=== PATIENT | female | born 1965 | race Caucasian/White ===

== ENCOUNTER → 2023-12-10 | Emergency (ER) | payer OTHER ==
[~2023-12-10] MED LIST: KETOROLAC 30 MG/ML INJ ONE; LIDOCAINE HCL JELLY 2% 6 ML SYRINGE TOP ONE
--- NOTE | 2023-12-10 15:59 | RAD REPORT ---
EXAM DESCRIPTION: CT - Head C Spine Mpr Wo Con - 12/10/2023 3:13 pm CLINICAL HISTORY: Head and neck injury status post fall. Head and neck pain COMPARISON: None. TECHNIQUE: Computed axial tomography of the head and cervical spine was obtained. Sagittal and coronal reconstruction was performed. All CT scans are performed using dose optimization technique as appropriate and may include automated exposure control or mA/KV adjustment according to patient size. FINDINGS: Right posterior scalp hematoma An intracranial bleed is not seen. The ventricles are normal in caliber. No significant hypodensity within the brain. An extra-axial fluid collection is not noted. Fluid within the visualized sinuses and mastoids is not seen A cervical fracture is not visualized. No dislocation is noted. Widening of spinous processes between C1-C2 Scoliosis involves the spine. 1.5 centimeter nodule right lobe thyroid gland IMPRESSION: No acute intracranial abnormality is seen. A cervical fracture is not visualized. Widening of the spinous processes between C1-C2 probably not significant. However if the patient has clinical symptoms to suggest ligamentous injury MRI would be recommended 1.5 centimeter nodule right lobe thyroid gland. Nonemergent thyroid ultrasound recommended
--- NOTE | 2023-12-10 16:42 | ER ---
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 Unable to visualize wound in triage, dried blood noted to scalp/hair. Coronavirus screen: At this time, the client does not indicate any symptoms associated with coronavirus-19. Ebola Screen: No symptoms or risks identified at this time. Initial Sepsis Screen: Does the patient meet any 2 criteria? No. Patient's initial sepsis screen is negative. Does the patient have a suspected source of infection? No. Patient's initial sepsis screen is negative. Risk Assessment: Do you want to hurt yourself or someone else? Patient reports no desire to harm self or others. Onset of symptoms was December 10, 2023. 15:01 Method Of Arrival: Wheelchair hb 15:01 Acuity: MAXWELL 4 hb 16:29 Care prior to arrival: None. Mechanism of Injury: Fall tripped and fell, hitting right me1 posterior scalp on the corner of the wall. Trauma event details: Injury occurred: December 10, 2023. Triage Assessment: 15:09 General: Appears in no apparent distress. Behavior is calm, cooperative. Pain: Pain hb currently is 5 out of 10 on a pain scale. Neuro: Level of Consciousness is awake, alert, obeys commands, Oriented to person, place, time, situation. Cardiovascular: Patient's skin is warm and dry. Respiratory: Respiratory effort is even, unlabored, Respiratory pattern is regular, symmetrical. Injury Description: Laceration sustained to scalp is not bleeding, unable to visualize at this time due to hair/dried blood. Trauma Activation: Physician: ED Physician; Name: ; Notified At: ; Arrived At: Physician: General Surgeon; Name: ; Notified At: ; Arrived At: Physician: Radiology; Name: ; Notified At: ; Arrived At: Physician: Respiratory; Name: ; Notified At: ; Arrived At: Physician: Lab; Name: ; Notified At: ; Arrived At: 16:29 n/a me1 Historical: - Allergies: 15:03 Sulfa (Sulfonamide Antibiotics); hb 15:03 Codeine; hb 15:03 Cipro; hb - Home Meds: 15:06 Gastric Bypass [Active]; Vitamin B [Active]; semaglutide subcutaneous [Active]; hb Adderall 20 mg three times a day [Active]; Prozac 60 mg Oral daily [Active]; Zyrtec 10 mg Oral tablet [Active]; - PMHx: 15:09 Depressive disorder; hb - PSHx: 15:06 Wrist - Right; Ankle - Bilateral; Breast Reduction; section; hb - Immunization history:: Adult Immunizations up to date, Client reports receiving the 2nd dose of the Covid vaccine. - Social history:: Smoking status: Patient denies any tobacco usage or history of. - Immunization history: Last tetanus immunization: - up to date. Screenin:23 [facility] ED Fall Risk Assessment (Adult) History of falling in the last 3 months, me1 including since admission Yes- single mechanical fall (1 pt) Confusion or Disorientation No (0 pts) Intoxicated or Sedated No (0 pts) Impaired Gait No (0 pts) Mobility Assist Device Used No (0 pt) Altered Elimination No (0 pt) Score/Fall Risk Level 0 - 2 = Low Risk Maintained a safe environment, Provided non-skid footwear, Hourly rounding (assess needs \T\ fall precautionary measures) done. Abuse screen: Denies threats or abuse. Nutritional screening: No deficits noted. Tuberculosis screening: No symptoms or risk factors identified. Primary Survey: 16:27 NO uncontrolled hemorrhage observed. A: The client is awake and alert. The airway is me1 patent. The client is alert. Airway: patent, Patient intubated prior to arrival No supplemental oxygen in use on arrival. Oral cavity: clear, gag reflex present, Trachea midline. Breathing/Chest: Spontaneous respiratory effort, equal unlabored respirations, breath sounds clear bilaterally, regular pattern, symmetrical chest rise and fall. Circulation: Hemorrhage: No external hemorrhage noted. Skin color: pink, Skin temperature: warm, dry, Heart tones present. Disability Pupils are equal, round, reactive to light and accommodation. Exposure/Environment: There is no evidence of uncontrolled external bleeding. Obvious injury(ies) are noted at this time: laceration to right posterior scalp. 16:29 Reassessment Breathing: Spontaneous respiratory effort, equal unlabored respirations, me1 breath sounds clear bilaterally, regular pattern with symmetrical chest rise and fall. Respiratory effort Spontaneous Unlabored Breath sounds Clear Respiratory pattern Regular Chest inspection Symmetrical Circulation: No external hemorrhage noted. Regular and strong central pulse, skin warm/dry/normal color. Heart tones Present Disability: Pupils Pupils are equal, round, reactive to light and accomodation. Alert. 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 Laceration noted. Pain: Complains of pain in scalp Pain does not radiate. Pain currently is 5 out of 10 on a pain scale. Quality of pain is described as aching, Pain began suddenly, Is continuous. Neuro: Level of Consciousness is awake, alert, obeys commands, Oriented to person, place, time, situation, Appropriate for age. Cardiovascular: Capillary refill < 3 seconds Patient's skin is warm and dry. Respiratory: Airway is patent Trachea midline Respiratory effort is even, unlabored, Respiratory pattern is regular, symmetrical. GI: No deficits noted. : No deficits noted. EENT: No deficits noted. Derm: Wound noted scalp Wound is laceration to right posterior scalp. Musculoskeletal: No signs and/or symptoms reported regarding the musculoskeletal system. Injury Description: tripped and fell hitting head on the corner of a wall. Vital Signs: 15:01 BP 147 / 96; Pulse 68; Resp 16; Temp 98.4; Pulse Ox 100% on R/A; Weight 126.55 kg; hb Height 5 ft. 10 in. ; Pain 5/10; 17:00 BP 138 / 87; Pulse 67; Resp 15; Temp 97.9(TE); Pulse Ox 100% on R/A; Pain 0/10; me1 15:01 Body Mass Index 40.03 (126.55 kg, 177.8 cm) hb 15:01 Pain Scale: Adult hb 17:00 Pain Scale: Adult me1 [place] Coma Score: 16:27 Eye Response: spontaneous(4). Motor Response: obeys commands(6). Verbal Response: me1 oriented(5). Total: 15. Trauma Score (Adult): 16:27 Eye Response: spontaneous(1); Verbal Response: oriented(1); Motor Response: obeys me1 commands(2); Systolic BP: > 89 mm Hg(4); Respiratory Rate: 10 to 29 per min(4); [place] Score: 15; Trauma Score: 12 ED Course: 14:49 Patient arrived in ED. rg4 14:49 Lois Sales FNP-C is [facility]. kb 14:49 Ramon Booth MD is Attending Physician. kb 15:03 Triage completed. hb 15:05 Arm band placed on. hb 15:13 CT Head C Spine In Process Unspecified. EDMS 16:14 Anne Noguera, RN is Primary Nurse. kd3 16:16 Arlet Proctor, RN is Primary Nurse. me1 16:23 Patient has correct armband on for positive identification. Bed in low position. Call me1 light in reach. Side rails up X 1. Provided Education on: POC. Verbalized understanding. . 16:23 No provider procedures requiring assistance completed. me1 16:27 Patient maintains SpO2 saturation greater than 95% on room air. me1 16:30 Thermoregulation: warm blanket given to patient. me1 17:11 Patient did not have IV access during this emergency room visit. me1 Administered Medications: 16:19 Drug: Ketorolac IM 30 mg IM once Route: IM; Site: right deltoid; me1 17:09 Follow up: Response: No adverse reaction; Pain is decreased me1 16:23 Drug: Lidocaine Mucous Membrane Gel 2 % 1 application Mucous Membrane once Route: me1 Mucous Membrane; 17:09 Follow up: Response: No adverse reaction; Pain is decreased me1 Medication: 17:10 VIS not applicable for this client. me1 Outcome: 16:42 Discharge ordered by . kb 17:10 Discharged to home via wheelchair, with significant other, me1 17:10 Condition: stable 17:10 Discharge instructions given to patient, significant other, Instructed on discharge instructions, follow up and referral plans. wound care, Demonstrated understanding of instructions, follow-up care, wound care, 17:11 Patient left the ED. 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 Unable to visualize wound in triage, dried blood noted to scalp/hair. hb
--- NOTE | 2023-12-10 16:42 | EDPHYS ---
Physician Documentation [facility] Name: Nunu Bolanos Age: 58 yrs Sex: Female : 1965 Arrival Date: 12/10/2023 Time: 14:46 Bed 12 Private MD: ED Physician Ramon Booth HPI: 12/09 14:58 This 58 yrs old Female presents to ER via Unassigned with complaints of Fall Injury, kb Head Injury-Adult. 14:58 Pt is a 58 year old female who presents for head injury after fall. States she tripped kb on a step and fell, hitting head on corner of the wall. Denies loc. . Historical: - Allergies: 15:03 Sulfa (Sulfonamide Antibiotics); hb 15:03 Codeine; hb 15:03 Cipro; hb - Home Meds: 15:06 Gastric Bypass [Active]; Vitamin B [Active]; semaglutide subcutaneous [Active]; hb Adderall 20 mg three times a day [Active]; Prozac 60 mg Oral daily [Active]; Zyrtec 10 mg Oral tablet [Active]; - PMHx: 15:09 Depressive disorder; hb - PSHx: 15:06 Wrist - Right; Ankle - Bilateral; Breast Reduction; section; hb - Immunization history:: Adult Immunizations up to date, Client reports receiving the 2nd dose of the Covid vaccine. - Social history:: Smoking status: Patient denies any tobacco usage or history of. - Immunization history: Last tetanus immunization: - up to date. ROS: 14:58 Constitutional: As per HPI kb Exam: 16:41 Constitutional: This is a well developed, well nourished patient who is awake, alert, kb and in no acute distress. Eyes: Pupils equal round and reactive to light, extra-ocular motions intact. Lids and lashes normal. Conjunctiva and sclera are non-icteric and not injected. Cornea within normal limits. Periorbital areas with no swelling, redness, or edema. ENT: Moist Mucous membranes Cardiovascular: Regular rate Respiratory: Respirations even and unlabored. No increased work of breathing. Talking in full sentences Skin: Warm, dry with normal turgor. Normal color. MS/ Extremity: Pulses equal, no cyanosis. Neurovascular intact. Full, normal range of motion. Neuro: Awake and alert, GCS 15, oriented to person, place, time, and situation. Moves all extremities. Normal gait. 16:41 Head/face: Noted is no obvious of injury or deformity except a laceration(s), that is superficial, 1 cm(s), of the right occipital area, Vital Signs: 15:01 BP 147 / 96; Pulse 68; Resp 16; Temp 98.4; Pulse Ox 100% on R/A; Weight 126.55 kg; hb Height 5 ft. 10 in. ; Pain 5/10; 17:00 BP 138 / 87; Pulse 67; Resp 15; Temp 97.9(TE); Pulse Ox 100% on R/A; Pain 0/10; me1 15:01 Body Mass Index 40.03 (126.55 kg, 177.8 cm) hb 15:01 Pain Scale: Adult hb 17:00 Pain Scale: Adult me1 [place] Coma Score: 16:27 Eye Response: spontaneous(4). Motor Response: obeys commands(6). Verbal Response: me1 oriented(5). Total: 15. Trauma Score (Adult): 16:27 Eye Response: spontaneous(1); Verbal Response: oriented(1); Motor Response: obeys me1 commands(2); Systolic BP: > 89 mm Hg(4); Respiratory Rate: 10 to 29 per min(4); [place] Score: 15; Trauma Score: 12 Laceration: 16:41 Wound Repair of 1cm ( 0.4in ) subcutaneous laceration to right occipital area. Linear kb shaped.. Distal neuro/vascular/tendon intact. Anesthesia: Topical anesthetic administered with 1% lidocaine. Wound prep: Extensive cleansing with hibiclenz by nurse by me, Wound irrigation with saline by nurse by me. Skin closed with 2 1-0 Emma using staple gun. Patient tolerated well. MDM: 14:49 Patient medically screened. kb 14:58 Differential diagnosis: abrasion, closed head injury, fracture, laceration. Data kb reviewed: vital signs, nurses notes. 16:41 Counseling: I had a detailed discussion with the patient and/or guardian regarding the kb historical points, exam findings, and any diagnostic results supporting the discharge/admit diagnosis, radiology results, the need for outpatient follow up, a family practitioner, to return to the emergency department if symptoms worsen or persist or if there are any questions or concerns that arise at home. 12/09 14:56 Order name: CT Head C Spine; Complete Time: 16:00 kb 12/09 14:56 Order name: Wound Care: clean wound; Complete Time: 16:23 kb Administered Medications: 16:19 Drug: Ketorolac IM 30 mg IM once Route: IM; Site: right deltoid; me1 17:09 Follow up: Response: No adverse reaction; Pain is decreased me1 16:23 Drug: Lidocaine Mucous Membrane Gel 2 % 1 application Mucous Membrane once Route: me1 Mucous Membrane; 17:09 Follow up: Response: No adverse reaction; Pain is decreased me1 Disposition Summary: 12/10/23 16:42 Discharge Ordered Notes: Location: Home kb Condition: Stable kb Diagnosis - Laceration without foreign body of scalp kb Followup: kb - With: Emergency Department - When: As needed - Reason: Worsening of condition Followup: kb - With: Private Physician - When: 2 - 3 days - Reason: Recheck today's complaints, Continuance of care, Re-evaluation by your physician Discharge Instructions: - Discharge Summary Sheet kb - Laceration Care, Adult, [id number] kb - Head Injury, Adult, [id number] kb Forms: - Medication Reconciliation Form kb - Thank You Letter kb - Antibiotic Education kb - Prescription Opioid Use kb - Patient Portal Instructions kb - Leadership Thank You Letter kb Signatures: Dispatcher [employer] Lois Barnes, MARIA C-Maritza LOMBARDI-Darcie Santoyo, RN RN Arlet Proctor RN RN me1
[2023-12-10 17:33] VITALS: BP 138/87; TEMP 97.9; O2SAT 100
== END ==
LOC: ER 14:46
PROC: 0HQ0XZZ Repair Scalp Skin, External Approach (ICD-10-PCS; principal; 2023-12-10)
DX: S01.01XA Laceration without foreign body of scalp, initial encounter (principal); W01.0XXA Fall on same level from slipping, tripping and stumbling without subsequent striking against object, initial encounter; Z88.1 Allergy status to other antibiotic agents; Z88.2 Allergy status to sulfonamides; Z88.5 Allergy status to narcotic agent
CPT/HCPCS: 70450; 72125